=== PATIENT | female | born 1980 | race Caucasian/White ===

== ENCOUNTER 2019-10-03 14:19 | Emergency (ER) | payer MEDICARE, MEDICAID ==
[2019-10-03] MEDS ORDERED: Lactated Ringers 1,000 ML IV SCH (15:15)
[2019-10-03] MEDS ORDERED: fentaNYL 100 MCG/2 ML SDV IVPUSH ONE (15:17)
[2019-10-03] MEDS ORDERED: Ondansetron 4 MG/2 ML SDV IVPUSH ONE (15:17)
--- NOTE | 2019-10-03 15:21 | EDM.PDOC ---
ED HPI GENERAL MEDICAL PROBLEM - General Chief Complaint: Abdominal Pain Stated Complaint: UPPER RT SIDE PAIN RADIATES TO BACK Time Seen by Provider: 10/03/19 15:09 Source of Information: Reports: Patient, RN Notes Reviewed History Limitations: Reports: No Limitations - History of Present Illness INITIAL COMMENTS - FREE TEXT/NARRATIVE: 39-year-old female presents emergency department with a complaint of right upper quadrant pain, she states the pain started suddenly this afternoon she did eat lunch around 11:00 pain occurred about an hour later it is very intense but then will wax off she does feel nauseated no history of abdominal surgeries she states she has passed gas no history of kidney stones no family history of gallbladder disease Right Middle Abdomen Pain Score (Numeric/FACES): 5 - Related Data Allergies Allergy/AdvReac Type Severity Reaction Status Date / Time No Known Allergies Allergy Verified 10/03/19 14:55 Home Meds: Home Meds ClonazePAM [KlonoPIN] 1 mg PO BID 08/23/14 [History] Methylphenidate HCl [Ritalin] 20 mg PO BID 08/23/14 [History] QUEtiapine [SEROquel] 100 mg PO BEDTIME 08/23/14 [History] Methylphenidate HCl [Ritalin] 10 mg PO DAILY 10/03/19 [History] Past Medical History HEENT History: Reports: Impaired Vision Neurological History: Reports: Concussion, Migraines Psychiatric History: Reports: Anxiety - Past Surgical History Head Surgeries/Procedures: Reports: None HEENT Surgical History: Reports: Cataract Surgery, Other (See Below) Neurological Surgical History: Reports: None Dermatological Surgical History: Reports: None Social & Family History - Tobacco Use Smoking Status *Q: Current Every Day Smoker Years of Tobacco use: 20 Packs/Tins Daily: 0.5 Used Tobacco, but Quit: No Second Hand Smoke Exposure: No - Caffeine Use Caffeine Use: Reports: Soda - Recreational Drug Use Recreational Drug Use: No ED ROS GENERAL - Review of Systems Review Of Systems: See Below Constitutional: Reports: No Symptoms HEENT: Reports: No Symptoms Respiratory: Reports: No Symptoms Cardiovascular: Reports: No Symptoms GI/Abdominal: Reports: Abdominal Pain, Flatus, Nausea ED EXAM, GI/ABD - Physical Exam Exam: See Below Exam Limited By: No Limitations General Appearance: Alert, Mild Distress Respiratory/Chest: No Respiratory Distress, Lungs Clear, Normal Breath Sounds, No Accessory Muscle Use, Chest Non-Tender Cardiovascular: Regular Rate, Rhythm, No Murmur GI/Abdominal Exam: Soft, No Distention, Tender (Right upper quadrant) Back Exam: Normal Inspection, Full Range of Motion. No: CVA Tenderness (R), CVA Tenderness (L) Course - Vital Signs Last Recorded V/S: Last Vital Signs Temp 95.9 F L 10/03/19 14:58 Pulse 89 10/03/19 16:08 Resp 16 10/03/19 14:58 BP 150/86 H 10/03/19 16:08 Pulse Ox 97 10/03/19 16:08 - Orders/Labs/Meds Orders: Active Orders 24 hr Category Date Time Status Peripheral IV Care [RC] . DIRECTED Care 10/03/19 15:14 Active Iopamidol [Isovue-300 (61%)] Med 10/03/19 15:30 Active 100 ml IV . DIRECTED Lactated Ringers [Ringers, Lactated] 1,000 ml Med 10/03/19 15:15 Active IV ASDIRECTED Sodium Chloride 0.9% [Normal Saline] 80 ml Med 10/03/19 15:30 Active IV ASDIRECTED Sodium Chloride 0.9% [Saline Flush] Med 10/03/19 15:14 Active 10 ml FLUSH ASDIRECTED PRN Peripheral IV Insertion Adult [OM.PC] Urgent Oth 10/03/19 15:14 Ordered Medication Orders Lactated Ringer's (Ringers, Lactated) 1,000 mls @ 999 mls/hr IV ASDIRECTED [facility] Last Admin: 10/03/19 15:34 Dose: 999 mls/hr Sodium Chloride (Normal Saline) 80 mls @ 3 mls/sec IV ASDIRECTED [facility] Last Admin: 10/03/19 16:01 Dose: 3 mls/sec Iopamidol (Isovue-300 (61%)) 100 ml IV . DIRECTED [facility] Last Admin: 10/03/19 16:02 Dose: 78 ml Sodium Chloride (Saline Flush) 10 ml FLUSH ASDIRECTED PRN PRN Reason: Keep Vein Open Last Admin: 10/03/19 16:01 Dose: 10 ml Admin: 10/03/19 15:34 Dose: 10 ml Labs: Laboratory Tests 10/03/19 10/03/19 10/03/19 Range/Units 15:14 15:23 15:23 WBC 15.2 H (4.5-11.0) K/uL RBC 4.65 (3.30-5.50) M/uL Hgb 13.4 (12.0-15.0) g/dL Hct 42.0 (36.0-48.0) % MCV 90 (80-98) fL MCH 29 (27-31) pg MCHC 32 (32-36) % Plt Count 489 H (150-400) K/uL Neut % (Auto) 70 H (36-66) % Lymph % (Auto) 21 L (24-44) % Levy % (Auto) 7 H (2-6) % Eos % (Auto) 2 (2-4) % Baso % (Auto) 0 (0-1) % PT 9.4 L (9.5-12.0) sec INR 0.86 (0.80-1.20) Sodium 139 L (140-148) mmol/L Potassium 3.8 (3.6-5.2) mmol/L Chloride 102 (100-108) mmol/L Carbon Dioxide 27 (21-32) mmol/L Anion Gap 13.8 (5.0-14.0) mmol/L BUN 11 D (7-18) mg/dL Creatinine 0.9 (0.6-1.0) mg/dL Est Cr Clr Drug Dosing 68.05 mL/min Estimated GFR (MDRD) > 60 (>60) Glucose 92 (74-106) mg/dL Lactic Acid (0.4-2.0) mmol/L Calcium 8.6 (8.5-10.1) mg/dL Total Bilirubin 0.2 (0.2-1.0) mg/dL AST 45 H D (15-37) U/L ALT 72 D (12-78) U/L Alkaline Phosphatase 118 H (46-116) U/L Troponin I < 0.017 (0.000-0.056) ng/mL Total Protein 7.5 (6.4-8.2) g/dL Albumin 3.5 (3.4-5.0) g/dL Globulin 4.0 H (2.3-3.5) g/dL Albumin/Globulin Ratio 0.9 L (1.2-2.2) Lipase 115 (73-393) U/L Urine Color (YELLOW) Urine Appearance (CLEAR) Urine pH (5.0-8.0) Ur Specific Bolt (1.008-1.030) Urine Protein (NEGATIVE) mg/dL Urine Glucose (UA) (NEGATIVE) mg/dL Urine Ketones (NEGATIVE) mg/dL Urine Occult Blood (NEGATIVE) Urine Nitrite (NEGATIVE) Urine Bilirubin (NEGATIVE) Urine Urobilinogen (0.2-1.0) EU/dL Ur Leukocyte Esterase (NEGATIVE) Urine RBC (0-5) Urine WBC (0-5) Ur Epithelial Cells Amorphous Sediment Urine Bacteria Urine Mucus Urine HCG, Qual 10/03/19 10/03/19 10/03/19 Range/Units 15:23 15:35 15:35 WBC (4.5-11.0) K/uL RBC (3.30-5.50) M/uL Hgb (12.0-15.0) g/dL Hct (36.0-48.0) % MCV (80-98) fL MCH (27-31) pg MCHC (32-36) % Plt Count (150-400) K/uL Neut % (Auto) (36-66) % Lymph % (Auto) (24-44) % Levy % (Auto) (2-6) % Eos % (Auto) (2-4) % Baso % (Auto) (0-1) % PT (9.5-12.0) sec INR (0.80-1.20) Sodium (140-148) mmol/L Potassium (3.6-5.2) mmol/L Chloride (100-108) mmol/L Carbon Dioxide (21-32) mmol/L Anion Gap (5.0-14.0) mmol/L BUN (7-18) mg/dL Creatinine (0.6-1.0) mg/dL Est Cr Clr Drug Dosing mL/min Estimated GFR (MDRD) (>60) Glucose (74-106) mg/dL Lactic Acid 1.3 (0.4-2.0) mmol/L Calcium (8.5-10.1) mg/dL Total Bilirubin (0.2-1.0) mg/dL AST (15-37) U/L ALT (12-78) U/L Alkaline Phosphatase (46-116) U/L Troponin I (0.000-0.056) ng/mL Total Protein (6.4-8.2) g/dL Albumin (3.4-5.0) g/dL Globulin (2.3-3.5) g/dL Albumin/Globulin Ratio (1.2-2.2) Lipase (73-393) U/L Urine Color Yellow (YELLOW) Urine Appearance Slightly cloudy A (CLEAR) Urine pH 6.0 (5.0-8.0) Ur Specific Bolt 1.025 (1.008-1.030) Urine Protein Negative (NEGATIVE) mg/dL Urine Glucose (UA) Negative (NEGATIVE) mg/dL Urine Ketones Negative (NEGATIVE) mg/dL Urine Occult Blood Trace-lysed H (NEGATIVE) Urine Nitrite Negative (NEGATIVE) Urine Bilirubin Negative (NEGATIVE) Urine Urobilinogen 0.2 (0.2-1.0) EU/dL Ur Leukocyte Esterase Negative (NEGATIVE) Urine RBC 0-5 (0-5) Urine WBC 0-5 (0-5) Ur Epithelial Cells Many Amorphous Sediment Few Urine Bacteria Not seen Urine Mucus Not seen Urine HCG, Qual Negative Meds: Medications Generic Name Dose Route Start Last Admin Trade Name Freq PRN Reason Stop Dose Admin Lactated Ringer's 1,000 mls @ 999 mls/hr 10/03/19 15:15 10/03/19 15:34 Ringers, Lactated IV 999 mls/hr ASDIRECTED DEANNA Administration Sodium Chloride 80 mls @ 3 mls/sec 10/03/19 15:30 10/03/19 16:01 Normal Saline IV 3 mls/sec ASDIRECTED DEANNA Administration Iopamidol 100 ml 10/03/19 15:30 10/03/19 16:02 Isovue-300 (61%) IV 78 ml . DIRECTED DEANNA Administration Sodium Chloride 10 ml 10/03/19 15:14 10/03/19 16:01 Saline Flush FLUSH 10 ml ASDIRECTED PRN Administration Keep Vein Open Discontinued Medications Generic Name Dose Route Start Last Admin Trade Name Freq PRN Reason Stop Dose Admin Fentanyl 50 mcg 10/03/19 15:17 10/03/19 15:32 Sublimaze IVPUSH 10/03/19 15:18 50 mcg ONETIME ONE Administration Ondansetron HCl 4 mg 10/03/19 15:17 10/03/19 15:30 Zofran IVPUSH 10/03/19 15:18 4 mg ONETIME ONE Administration Departure - Departure Time of Disposition: 16:50 Disposition: Admitted As Inpatient 64 Condition: Fair Clinical Impression: Cholecystitis - Discharge Information Referrals: PCP,None [Primary Care Provider] - Forms: ED Department Discharge Sepsis Event Note - Evaluation Sepsis Screening Result: Possible Sepsis Risk - Focused Exam Vital Signs: Vital Signs Temp Pulse Resp BP Pulse Ox 10/03/19 16:08 89 150/86 H 97 10/03/19 15:02 99 144/88 H 96 10/03/19 14:58 95.9 F L 91 16 145/88 H 94 L 10/03/19 14:53 95.9 F L 91 16 145/88 H 94 L Date Exam was Performed: 10/03/19 Time Exam was Performed: 16:49 - My Orders Last 24 Hours: My Active Orders 10/03/19 15:14 Peripheral IV Care [RC] . DIRECTED Sodium Chloride 0.9% [Saline Flush] 10 ml FLUSH ASDIRECTED PRN Peripheral IV Insertion Adult [OM.PC] Urgent 10/03/19 15:15 Lactated Ringers [Ringers, Lactated] 1,000 ml IV ASDIRECTED 10/03/19 15:30 Iopamidol [Isovue-300 (61%)] 100 ml IV . DIRECTED Sodium Chloride 0.9% [Normal Saline] 80 ml IV ASDIRECTED - Assessment/Plan Last 24 Hours: My Active Orders 10/03/19 15:14 Peripheral IV Care [RC] . DIRECTED Sodium Chloride 0.9% [Saline Flush] 10 ml FLUSH ASDIRECTED PRN Peripheral IV Insertion Adult [OM.PC] Urgent 10/03/19 15:15 Lactated Ringers [Ringers, Lactated] 1,000 ml IV ASDIRECTED 10/03/19 15:30 Iopamidol [Isovue-300 (61%)] 100 ml IV . DIRECTED Sodium Chloride 0.9% [Normal Saline] 80 ml IV ASDIRECTED Plan: Assessment Acuity = acute Site and laterality = cholecystitis Etiology = probably gallstone related Manifestations = abdominal pain Location of injury = Home Lab values = WBC elevated 15.2 consistent leukocytosis, troponin was negative AST slightly elevated at 45 consistent with elevated liver enzymes urinalysis is negative CT scan describes acute cholecystitis above Plan Call discussed case with Dr. Mejia at [phone] he kindly agreed to come and evaluate the patient emergency department for admission This note was dictated using [employer]ono voice recognition software please call with any questions on syntax or grammar.
[2019-10-03] MEDS ORDERED: Sodium Chloride 0.9% 80 ML IV SCH (15:30)
[2019-10-03] MEDS ORDERED: Iopamidol 612 MG/ML 100 ML Bottle IV SCH (15:30)
[2019-10-03] MEDS: Sodium Chloride 0.9% 10 ML Syringe FLUSH PRN ×2 (15:34→16:01)
[2019-10-03 16:09] VITALS: BP 150/86; PULSE 89
--- NOTE | 2019-10-03 16:29 | CRLCT ---
HISTORY: Right upper quadrant abdominal pain. TECHNIQUE: Intravenous contrast enhanced CT of the abdomen and pelvis. 78 mL of Isovue-300 intravenous contrast was administered. COMPARISON: No prior. FINDINGS: There is an approximately 2 cm cystic-appearing lesion posterior to the liver on axial image #44 series 2. This could either reflect an exophytic liver cyst or cystic lesion immediately posterior to the liver. No other focal liver parenchymal abnormality. There is no intrahepatic or extrahepatic biliary ductal dilatation. The gallbladder is mildly distended measuring 4 cm. There may either be gallbladder wall edema or pericholecystic fluid. Gallstones in the neck region the gallbladder. Findings could indicate cholecystitis and gallbladder ultrasound is recommended for further evaluation. - There is no pancreatic ductal dilatation or acute peripancreatic inflammatory change. Spleen size within normal limits. Adrenal glands are normal. Symmetric nephrograms. No renal mass or hydronephrosis. No obstructive urinary calculus. Urinary bladder does not appear overly distended. - No small bowel obstruction. No appendicitis. No diverticulitis. No abdominal aortic aneurysm. - There is a prominent lymph node adjacent to the gallbladder on image #44 of series 2 which measures approximately 1 cm short axis. Additional prominent portacaval lymph node on image #46 measures 1.5 cm short axis. There are several additional nery hepatis prominent lymph nodes. There is a prominent gastrohepatic lymph node on image #32 which measures 1 cm in short axis. Small retroperitoneal lymph nodes measure under 1 cm short axis. - Small fat containing umbilical hernia. No inguinal hernia. - Mild subpleural atelectasis within the right lower lobe. Small area of atelectasis or scarring within the lingula. - No acute fractures. IMPRESSION: 1. Abnormal gallbladder with gallstones and either gallbladder wall edema or pericholecystic fluid suspected. Findings could indicate cholecystitis. Right upper quadrant ultrasound is recommended for further evaluation. 2. No biliary ductal dilatation. 3. Nonspecific upper abdominal adenopathy in the portacaval, nery hepatis and gastrohepatic distributions. 4. 2 cm cystic lesion either arising exophytically from the posterior liver or immediately adjacent to the posterior liver. Consider CT follow-up in 3 months to determine stability. 5. Small fat containing umbilical hernia. Dictated by Pa Sosa MD @ 10/03/2019 4:27:26 PM Please note that all CT scans at this facility use dose modulation, iterative reconstruction, and/or weight-based dosing when appropriate to reduce radiation dose to as low as reasonably achievable. Dictated by: Pa Sosa MD @ 10/03/2019 16:27:30 (Electronically Signed)
--- NOTE | 2019-10-03 23:39 | CONS ---
DATE OF SERVICE: 10/03/2019 REFERRING PHYSICIAN: CONSULTING PHYSICIAN: Osvaldo Mejia MD REASON FOR CONSULTATION: Abdominal pain. HISTORY OF PRESENT ILLNESS: This is a pleasant 39-year-old female with right upper quadrant abdominal pain. This is associated with some mild nausea. No vomiting, shortness of breath, or chest pain. This is an ongoing problem for her. Made worse by eating greasy or fatty foods. PAST SURGICAL HISTORY: Nasal surgery. PAST MEDICAL HISTORY: None. SOCIAL HISTORY: She does smoke. FAMILY HISTORY: No family history of gallbladder disease. REVIEW OF SYSTEMS: GENERAL: The patient is appropriate for her condition. HEENT: She is a smoker. RESPIRATORY: She is a smoker. CARDIOVASCULAR: The patient is actively smoking. GI: As above. GENITOURINARY: Noncontributory. NEUROLOGICAL: No significant changes today. PSYCH: No significant changes. The remainder of review of systems is reviewed and is negative. PHYSICAL EXAMINATION: VITAL SIGNS: Stable. GENERAL: The patient is resting comfortably. HEENT: Pupils are equal. NECK: Supple. LUNGS: Clear. Regular rhythm and rate. ABDOMEN: Pain with palpation, right upper quadrant. EXTREMITIES: Full range of motion. Strength 5/5. NEUROLOGICAL: Oriented x3. PSYCH: No gross depression. IMAGING DATA: I did review the CT scan, which shows cholelithiasis, cholecystitis, and an umbilical hernia. ASSESSMENT: Cholelithiasis, cholecystitis. PLAN: I did offer to perform the laparoscopic cholecystectomy on this patient either today or admit her. However, she wants to go home and we will have Outpatient contact her to get this scheduled early next week. We discussed risks, benefits, alternatives, and limitations including, but not limited to infection, bleeding, and perforation of abdominal structures. We also discussed cystic duct injuries and common bile duct leaks. The patient understands these risks and wishes to proceed. Osvaldo Mejia MD /[id number]
== END 2019-10-03 17:01 | disposition critical access hospital (66) ==
LOC: JP.ED 14:19
DX: K81.9 Cholecystitis, unspecified (principal); F17.210 Nicotine dependence, cigarettes, uncomplicated; F41.9 Anxiety disorder, unspecified; Z79.899 Other long term (current) drug therapy
CPT/HCPCS: 36415; 74177; 80053; 81001; 81025; 83605; 83690; 84484; 85025; 85610; 96374; 96375; 99285; J2405; J3010; J7050; J7120; Q9967; 99283

== ENCOUNTER 2019-10-11 07:20 | Day surgery (SDC) | payer MEDICARE, MEDICAID ==
[~2019-10-11 07:20] MED LIST: Bupivacaine 0.5% 50 ML MDV ONE; Lidocaine 1% with EPINEPHrine 1:100,000 50 ML MDV ONE
[2019-10-11] MEDS ORDERED: fentaNYL 250 MCG/5 ML SDV ONE (07:27)
[2019-10-11] MEDS ORDERED: Rocuronium 50 MG/5 ML Vial ONE (07:28)
[2019-10-11] MEDS ORDERED: Propofol 200 MG/20 ML SDV ONE (07:28)
[2019-10-11] MEDS ORDERED: Neostigmine Methylsulfate 1 MG/ML 5 ML Syringe ONE (07:28)
[2019-10-11] MEDS ORDERED: Glycopyrrolate 0.2 MG/ML 5 ML MDV ONE (07:28)
[2019-10-11] MEDS ORDERED: Ondansetron 4 MG/2 ML SDV ONE (07:28)
[2019-10-11] MEDS ORDERED: Dexamethasone 4 MG/ML SDV ONE (07:28)
[2019-10-11] MEDS ORDERED: Succinylcholine 200 MG/10 ML MDV ONE (07:28)
[2019-10-11] MEDS ORDERED: metroNIDAZOLE/Normal Saline 500 MG in Premix Bag 1 BAG IV ONE (07:59)
[2019-10-11] MEDS: Sodium Chloride 0.9% 1,000 ML IV SCH ×2 (08:09→10:39)
[2019-10-11] MEDS ORDERED: Benzocaine/Cetylpyridinium/Menthol Lozenge MUCMEM PRN (08:40)
[2019-10-11] MEDS ORDERED: Docusate Sodium 100 MG Cap PO PRN (08:40)
[2019-10-11] MEDS ORDERED: Acetaminophen/HYDROcodone 325-5 MG Tab PO PRN (08:40)
[2019-10-11] MEDS ORDERED: hydrOXYzine HCL 100 MG/2 ML SDV IM PRN (08:40)
[2019-10-11] MEDS ORDERED: Zolpidem 5 MG Tab PO PRN (08:40)
[2019-10-11] MEDS ORDERED: ceFAZolin 2 GM in Premix Bag 1 BAG IV ONE (09:00)
[2019-10-11] MEDS ORDERED: fentaNYL 100 MCG/2 ML SDV ONE (09:33)
[2019-10-11] MEDS ORDERED: Ketorolac 60 MG/2 ML SDV ONE (09:34)
--- NOTE | 2019-10-11 13:03 | OR ---
DATE OF PROCEDURE: 10/11/2019 SURGEON: Osvaldo Mejia MD PROCEDURE: Laparoscopic cholecystectomy. PREOPERATIVE DIAGNOSES: Cholelithiasis and cholecystitis. POSTOPERATIVE DIAGNOSES: Cholelithiasis and cholecystitis. COMPLICATIONS: None. GLOST KILN OPERATOR: None. RISKS: Risks, benefits, alternatives, and limitations including, but not limited to infection, bleeding, common bile duct injury, cystic duct leaks, and other risks not listed here were explained to the patient who wished to proceed. PROCEDURE IN DETAIL: The patient was placed in a supine position. The supraumbilical curvilinear incision was made. A Veress needle was used to enter the abdomen without abnormality. A drop test was performed without abnormality. The abdomen was subsequently insufflated. An additional 10 and two 5 mm ports were entered under direct visualization. Gallbladder was retracted cephalad. The infundibulum was retracted inferolaterally. A "clear view" of the gallbladder was obtained with a single pulsatile structure entering the gallbladder and a single non-pulsatile structure entering the gallbladder. The gallbladder itself was actually fusiform in nature, not your typical pedunculated or lobular type gallbladder. Due to this, this was transected using a florian load stapler on the cystic duct. The remaining one-third of the gallbladder was removed off the gallbladder bed. This was removed without difficulty. There was a large node associated with this. This was also sent along with the specimen. The gallbladder fossa was then thoroughly irrigated. This was removed. The air was then removed. The wounds were closed with 3-0 Vicryl and 4-0 Vicryl in interrupted running fashion. Dermabond was applied. Osvaldo Mejia MD /[id number]
--- NOTE | 2019-10-11 13:03 | OR ---
DATE OF PROCEDURE: 10/11/2019 SURGEON: Osvaldo Mejia MD PROCEDURE: Transversus abdominis plane block bilaterally. COMPLICATIONS: None. ACADEMIC TUTOR: None. RISKS: Risks, benefits, alternatives, and limitations including, but not limited to infection, bleeding, and injury to abdominal structures were explained to the patient, who wished to proceed. PROCEDURE IN DETAIL: The patient was placed in supine position. The left transversus plane was identified first. The 80% of the solution was injected under direct visualization. The right side was then performed in the same manner, same fashion, same technique, in the same sequence, using the same equipment, except for different needle and syringe. The patient tolerated the procedure well. Osvaldo Mejia MD /[id number]
[2019-10-11 14:56] VITALS: BP 104/64; PULSE 91
== END 2019-10-11 15:15 | disposition home or self-care (01) ==
LOC: JP.SDS 07:20
PROVIDERS: ATTEND Surgery
DX: K80.12 Calculus of gallbladder with acute and chronic cholecystitis without obstruction (principal); F41.9 Anxiety disorder, unspecified; F17.210 Nicotine dependence, cigarettes, uncomplicated; Z79.899 Other long term (current) drug therapy
CPT/HCPCS: 47562; 81025; A9270; J0171; J0330; J0690; J1100; J1885; J2405; J2704; J2710; J2795; J3010; J3490; J7030; J7050; 88304